=== PATIENT | female | born 1950 | race Two or more races ===

== ENCOUNTER 2016-05-03 14:41 | Emergency (ER) | payer OTHER ==
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
== END 2016-05-03 16:43 | disposition home or self-care (01) ==
LOC: ED 14:41
DX: S27.329A Contusion of lung, unspecified, initial encounter (principal); V47.5XXA Car driver injured in collision with fixed or stationary object in traffic accident, initial encounter; Y92.410 Unspecified street and highway as the place of occurrence of the external cause; Y99.9 Unspecified external cause status